=== PATIENT | female | born 1995 | race Hispanic/Latino ===

== ENCOUNTER 2018-04-18 14:20 | Emergency (ER) | payer MEDICAID, OTHER ==
[2018-04-18] MEDS ORDERED: ONDANSETRON ODT 4 MG TAB ONE (14:41)
[2018-04-18 14:58] LABS: APPEARANCE,URINE Clear (CLEAR); BILIRUBIN,URINE Negative (NEGATIVE); COLOR,URINE Yellow (YELLOW); GLUCOSE, URINE (UA) Negative (NEGATIVE); KETONES,URINE Negative (NEGATIVE); LEUKOCYTE ESTERASE ,URINE Moderate (NEGATIVE); NITRATE,URINE Negative (NEGATIVE); OCCULT BLOOD,URINE Negative (NEGATIVE); PH,URINE 8.5 (5.0-8.0); PROTEIN,URINE Negative (NEGATIVE)
[2018-04-18 15:03] LABS: HCG,QUAL RESULT NEGATIVE (NEGATIVE)
[2018-04-18 15:10] LABS: BACTERIA,URINE Rare /HPF (None Seen); RBC,URINE 0-1 /HPF (0-1); SQUAMOUS EPITHELIAL CELL,UR Few /HPF (0-2)
== END 2018-04-18 15:43 | disposition home or self-care (01) ==
LOC: EDH 14:20
DX: N30.00 Acute cystitis without hematuria (principal); K52.9 Noninfective gastroenteritis and colitis, unspecified; Z88.1 Allergy status to other antibiotic agents
CPT/HCPCS: 81001; 81025; 87804

== ENCOUNTER 2018-09-15 17:23 | Emergency (ER) | payer OTHER | END 2018-09-15 19:43 | disposition home or self-care (01) | LOC: EDH 17:23 | DX: S20.212A Contusion of left front wall of thorax, initial encounter (principal); S20.211A Contusion of right front wall of thorax, initial encounter; S00.11XA Contusion of right eyelid and periocular area, initial encounter; S10.93XA Contusion of unspecified part of neck, initial encounter; Z72.0 Tobacco use; Z88.8 Allergy status to other drugs, medicaments and biological substances; Y04.2XXA Assault by strike against or bumped into by another person, initial encounter; Y93.89 Activity, other specified; Y92.89 Other specified places as the place of occurrence of the external cause; Y99.8 Other external cause status | CPT/HCPCS: 71046; 93005 ==

== ENCOUNTER 2018-11-09 03:48 | Emergency (ER) | payer SELFPAY ==
[2018-11-09] MEDS ORDERED: ONDANSETRON HCL 4 MG/2 ML VIAL ONE (03:53)
[2018-11-09] MEDS ORDERED: SODIUM CHLORIDE 0.9% 1000ML 1,000 ML IV ONE (03:53)
[2018-11-09 07:01] LABS: AMPHET/METH SCREEN,URINE POSITIVE (NEGATIVE); BARBITURATE SCREEN, URINE NEGATIVE (NEGATIVE); BENZODIAZEPINES SCREEN,URINE POSITIVE (NEGATIVE); CANNABINOID SCREEN,URINE NEGATIVE (NEGATIVE); COCAINE SCREEN,URINE POSITIVE (NEGATIVE); OPIATE SCREEN,URINE NEGATIVE (NEGATIVE); PHENCYCLIDINE SCREEN,URINE NEGATIVE (NEGATIVE)
== END 2018-11-09 11:53 | disposition home or self-care (01) ==
LOC: EDH 03:48
DX: F19.129 Other psychoactive substance abuse with intoxication, unspecified (principal); R11.2 Nausea with vomiting, unspecified; F10.10 Alcohol abuse, uncomplicated; Z88.8 Allergy status to other drugs, medicaments and biological substances
CPT/HCPCS: 36415; 80305; 81025; 96361; 96374; 99284; G0480; J2405; J7030

== ENCOUNTER 2019-02-18 05:34 | Emergency (ER) | payer OTHER ==
[2019-02-18] MEDS ORDERED: ACETAMINOPHEN 325 MG TAB ONE (07:04)
[2019-02-18] MEDS ORDERED: BENZONATATE 100 MG CAPSULE PO ONE (07:04)
[2019-02-18] MEDS ORDERED: IBUPROFEN 400 MG TABLET ONE (07:04)
== END 2019-02-18 07:14 | disposition home or self-care (01) ==
LOC: EDH 05:34
DX: S39.012A Strain of muscle, fascia and tendon of lower back, initial encounter (principal); R05 Cough; X58.XXXA Exposure to other specified factors, initial encounter; Y93.89 Activity, other specified; Y92.89 Other specified places as the place of occurrence of the external cause; Y99.8 Other external cause status
CPT/HCPCS: 71046